=== PATIENT | female | born 1970 | race Caucasian/White ===

== ENCOUNTER 2017-04-18 14:29 | Emergency (ER) | payer SELFPAY ==
[2017-04-18] MEDS ORDERED: Tetan/Diph/Pertus SYR(Tdap)* 0.5 ML SYR(BOOSTRIX) use SYR IM ONE (14:46)
[2017-04-18] MEDS ORDERED: Morphine INJ* 4 MG/ML 1 ML SYRINGE IV ONE ×2 (14:46→15:35)
[2017-04-18] MEDS ORDERED: Ondansetron INJ* 2 MG/ML VIAL IV ONE (14:46)
[2017-04-18] MEDS ORDERED: NS 0.9% 1000 ML* 1,000 ML IV ONE (14:53)
[2017-04-18 15:35] VITALS: BP 130/89
--- NOTE | 2017-04-18 15:50 | RAD ---
INDICATION: "Wood splitter versus hand" COMPARISON: None. TECHNIQUE: 4 views of the right hand were obtained. FINDINGS: There is a fracture of the diaphysis of the right ring finger proximal phalanx exhibiting close to 90 degrees of dorsal angulation. The remaining visualized bones are intact and appropriately aligned. IMPRESSION: Displaced fracture through the diaphysis of the right ring finger proximal phalanx.
--- NOTE | 2017-04-18 17:04 | ED ---
Upper Extremity Pain - HPI Summary HPI Summary: Patient was using a wood splitter when her hand slipped and was crushed. She suffered a laceration to the top of her right ring finger and has an obvious deformity. Blood was spurting from the wound, so her applied tobacco and a tourniquet and bleeding was controlled. She has sensation in the digit but is not able to extend the finger. Her tetanus is not up to date. She is right handed and denies previous injury to the finger. - History of Current Complaint Chief Complaint: EDGeneral Stated Complaint: RT HAND STUCK IN WOOD SPLITTER Time Seen by Provider: 04/18/17 14:38 Hx Obtained From: Patient Mechanism Of Injury: Blunt Trauma Onset/Duration: Started Hours Ago Timing: Constant Severity Initially: Severe Severity Currently: Severe Pain Location: Hand, Finger Character: Sharp, Aching Aggravating Factor(s): Movement Alleviating Factor(s): Nothing Associated Signs & Symptoms: Positive: Swelling, Redness, Bruising Related History: Dominant Hand Left PMH/Surg Hx/FS Hx/Imm Hx Previously Healthy: Yes Infectious Disease History: Denies: Traveled Outside the [place] in Last 30 Days - Family History Known Family History: Positive: None - Social History Occupation: Employed Full-time Lives: With Family Alcohol Use: Occasionally Substance Use Type: Reports: None Smoking Status (MU): Never Smoked Tobacco Review of Systems Positive: Myalgia, Decreased ROM, Edema Positive: Bruising, Other - 2 cm laceration to dorsum of right ring finger over proximal phalanx Negative: Weakness, Paresthesia, Numbness All Other Systems Reviewed And Are Negative: Yes Physical Exam Triage Information Reviewed: Yes Vital Signs On Initial Exam: Initial Vitals Temp Pulse Resp BP Pulse Ox 97.7 F 72 20 144/101 100 04/18/17 14:31 04/18/17 14:31 04/18/17 14:31 04/18/17 14:31 04/18/17 14:31 Vital Signs Reviewed: Yes Appearance: Positive: Well-Appearing, Well-Nourished, Pain Distress Skin: Positive: Warm, Skin Color Reflects Adequate Perfusion, Dry, Tender - 2 cm laceration to dorsum of right ring finger over proximal phalanx, Soft Head/Face: Positive: Normal Head/Face Inspection Eyes: Positive: EOMI, OLGA, Conjunctiva Clear ENT: Positive: Hearing grossly normal Respiratory/Lung Sounds: Positive: Breath Sounds Present Cardiovascular: Positive: RRR Musculoskeletal: Positive: Limited @ - No extension of the proximal, middle or distal phalanx of the right ring finger; movement of the index and middle fingers is limited due to swelling and bruising; FROM right wrist., Pain @ - extreme pain and deformity of right ring finger, Edema Right - right hand and digits Neurological: Positive: Sensory/Motor Intact, Alert, Oriented to Person Place, Time, NV Bundle Intact Distally - NV intact right ring and other digits Psychiatric: Positive: Affect/Mood Appropriate AVPU Assessment: Alert - Bria Coma Scale Coma Scale Total: 15 Procedures - Splinting Location: right ring finger Pre-Made Type: aluminum foam Splint: volar Pre-Proc Neuro Vasc Exam: normal Post-Proc Neuro Vasc Exam: normal - Joint Reduction Joint Reduction Site: other Specify Other Joint Reduced: right ring finger proximal phalanx Conscious Sedation: No Reduction Attempts: 1 Pre-Procedure NV Exam: Yes Post Joint Reduction Film: joint reduced - Laceration/Wound Repair 1 Location: upper extremity - right ring finger Description: Linear Anesthesia: Local, 2.0%, Lido Length, Depth and Shape: 2 cm long, 4mm wide, 4 mm deep Betadine Prep?: No Irrigated w/ Saline (ccs): 1,500 Laceration/Wound Explored: contaminated - tobacco and wood chips Closure: Single Layer Debridement: minimal Suture Type: Prolene Number of Sutures: 3 - loose approximation as per ortho Layer Closure?: No Sterile Dressing Applied?: Yes Diagnostics - Vital Signs Vital Signs Temp Pulse Resp BP Pulse Ox 04/18/17 15:48 16 04/18/17 15:26 98.4 F 56 18 130/89 99 04/18/17 15:16 18 04/18/17 14:31 97.7 F 72 20 144/101 100 - Laboratory Lab Statement: Any lab studies that have been ordered have been reviewed, and results considered in the medical decision making process. - Radiology No standard instances Xray Interpretation: Positive (See Comments) Radiology Interpretation Completed By: Radiologist - angulated fracture of the right ring proximal phalanx post-redux Xray Interpretation: Positive (See Comments) Radiology Interpretation Completed By: Radiologist - digit satisfactorily reduced Re-Evaluation - Re-Evaluation First Eval Re-Evaluation Time: 15:30 Change: Improved - pain decreased Second Eval Re-Evaluation Time: 16:15 Change: Improved - second dose of morphine has pain well controlled. Course/Dx - Diagnoses Differential Diagnosis/HQI/PQRI: Positive: Arthritis, Contusion, Fracture (Open) , Fracture (Closed), Hematoma, Laceration, Strain, Sprain Provider Diagnoses: Open displaced fracture of phalanx of right ring finger, Laceration of right ring finger, Extensor tendon laceration, finger, open wound - Physician Notifications Discussed Care of Patient With: Dr. Peraza, orthopedic surgeon Instructed by Provider To: Have Pt Call For Appt. Discharge - Discharge Plan Condition: Stable Disposition: HOME Prescriptions: Amoxicillin/Clavulanate TAB* [Augmentin TAB 875*] 875 mg PO BID #20 tab Ibuprofen TAB* [Motrin TAB* 600 MG] 600 mg PO Q6H PRN #40 tab PRN Reason: Pain oxyCODONE/Acetamin 5/325 MG* [Percocet 5/325 TAB*] 2 tab PO Q4H PRN #36 tab MDD 12 PRN Reason: Pain Patient Education Materials: Finger Fracture (ED) Referrals: No Primary Care Phys,NOPCP [Primary Care Provider] - Stuart Ibrahim MD [Medical Doctor] - Additional Instructions: Keep your splint clean, dry and intact at all times. Elevate your hand above your heart as much as possible and apply ice for 20 minutes several times daily to decrease swelling and pain. Use ibuprofen 600mg three times daily with meals for the next 5-7 days to decrease swelling and pain as well. Take the pain pills as needed for pain, but do not wait until you are in excruciating pain. Take your antibiotics until they are completely gone. Call Dr. Bai's office Thursday for an appointment Thursday to discuss further treatment. Return to the emergency department or call the orthopedic office at [phone] if your symptoms worsen.
--- NOTE | 2017-04-18 17:51 | RAD ---
INDICATION: Post reduction TECHNIQUE: 3 views of the right ring finger were obtained. FINDINGS: Again seen is a horizontally oriented fracture through the diaphysis of the right ring finger proximal phalanx. Anatomic alignment has been restored since the prior radiograph. IMPRESSION: YAZIDI OF ANATOMIC ALIGNMENT OF FRACTURED RIGHT RING FINGER PROXIMAL PHALANX.
== END 2017-04-18 17:33 | disposition home or self-care (01) ==
LOC: ED 14:29
DX: S62.604B Fracture of unspecified phalanx of right ring finger, initial encounter for open fracture (principal); S61.214A Laceration without foreign body of right ring finger without damage to nail, initial encounter; W23.0XXA Caught, crushed, jammed, or pinched between moving objects, initial encounter; Y93.9 Activity, unspecified; Y92.9 Unspecified place or not applicable
CPT/HCPCS: 73140; 90471; 90715; 96374; 96375; 99282; J0690; J2270; J2405

== ENCOUNTER 2017-04-23 12:10 | Day surgery (SDC) | payer SELFPAY ==
[~2017-04-23 12:10] MED LIST: Buffered Lidocaine 0.9% SYRIN* 5 ML/SYR SYRINGE INTRADERM ONE; Ibuprofen TAB* 400 MG PO ONE; Sodium Citrate/Citric Acid* 15 ML UDC PO ONE
[2017-04-23] MEDS ORDERED: Sodium Citrate/Citric Acid* 15 ML UDC ONE (12:17)
[2017-04-23] MEDS ORDERED: Ibuprofen TAB* 400 MG ONE (12:17)
[2017-04-23] MEDS ORDERED: ceFAZolin 2 GM PREMIX(*) 2 GM/50 ML BAG IVPB ONE (12:27)
[2017-04-23] MEDS ORDERED: Bupivacaine 0.25% SDV* 30 ML ONE (14:59)
[2017-04-23] MEDS ORDERED: Midazolam* 1 MG/ML 5 ML VIAL (5 MG) ONE (15:08)
[2017-04-23] MEDS ORDERED: fentaNYL* 50 MCG/ML 2 ML VIAL (100 MCG VIAL) ONE (15:08)
[2017-04-23] MEDS ORDERED: Propofol* 10 MG/ML 20 ML BTL IV PUSH ONE (15:11)
[2017-04-23] MEDS ORDERED: oxyCODONE/Acetamin 5/325 MG* TAB PO PRN (15:41)
[2017-04-23 18:10] VITALS: BP 110/70
--- NOTE | 2017-04-24 09:30 | RAD ---
INDICATION: Right ring finger traumatic fracture and surgical reduction. COMPARISON: Comparison is made with a prior x-ray study of the right ring finger from April 18, 2017. TECHNIQUE: 12 seconds of intermittent fluoroscopic guidance were provided and 3 spot films of the right hand were obtained in the operating room. FINDINGS: The films demonstrate operative reduction and internal fixation of a transverse fracture of the proximal phalanx. There is a metallic plate present along the dorsal aspect of the proximal phalanx transfixed with multiple screws. The bones are in normal alignment. IMPRESSION: INTRAOPERATIVE CONTROL FILMS. CPT II Codes: 6045F
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
== END 2017-04-23 17:58 | disposition home or self-care (01) ==
LOC: OREAST 12:10
PROVIDERS: ATTEND Orthopaedic Surgery Hand Surgery
DX: S62.614B Displaced fracture of proximal phalanx of right ring finger, initial encounter for open fracture (principal); W31.2XXA Contact with powered woodworking and forming machines, initial encounter; Y93.89 Activity, other specified; Y92.89 Other specified places as the place of occurrence of the external cause
CPT/HCPCS: 76000; A9270-GY; C1713; C1776; J0690; J2250; J2704; J3010

== ENCOUNTER 2017-08-05 16:11 | Emergency (ER) | payer SELFPAY ==
[2017-08-05 17:14] VITALS: BP 122/83
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
== END 2017-08-05 17:15 | disposition home or self-care (01) ==
LOC: ED 16:11
DX: T14.8XXA Other injury of unspecified body region, initial encounter (principal); V58.5XXA Driver of pick-up truck or van injured in noncollision transport accident in traffic accident, initial encounter; Y92.9 Unspecified place or not applicable
CPT/HCPCS: 99282